=== PATIENT | male | born 1990 | race Caucasian/White ===

== ENCOUNTER 2017-01-14 11:55 | Emergency (ER) | payer OTHER ==
[~2017-01-14] VITALS: Ht 162.6 cm; Wt 89.0 kg
[~2017-01-14 11:55] MED LIST: GABA-502 PO; LEVE750T16 PO; LEVO100T6 PO; NAPR250T PO
[2017-01-14 11:57] VITALS: BP 132/80; PULSE 89; RESP 15; O2SAT 100
--- NOTE | 2017-01-14 12:27 | ED.REPORT ---
HPI-Seizure Date of Service Jan 14, 2017 ED Provider: Ulices Levy MD A 26 year old female with a history of seizures and hypothyroid presents to the ED complaining of multiple seizures that occurred last night. She reports that they were caused by reading a Facebook message from her ex- that was about their children. She reports that she could not focus on a simple video game that she regularly plays. The lights from the screen were bothering her so she turned it off. She started feeling agitated and dizzy. She was sitting down, tried to get up, and knocked over a 24 inch TV in the process. She then became dizzy and irritated again, and fell back down. She reports that she knew she was having a small seizure at that moment because it took her a while to comprehend what had just happened. She went to bed later, woke up to go to the bathroom and noticed bruises. Later, a friend told her that she had been shaking in her sleep. This morning, the patient noticed tooth impressions on her tongue. The patient had another seizure this morning and loss feeling in her legs. She told her friend not to call EMS, because the patient knew that her mom was already coming to get her to take her to the hospital. The patient takes Keppra and lamotrigine twice a day. She missed one dose two weeks ago, but is compliant otherwise. She also takes thyroid medication. She has been stable with her medication since November. Dr. Mancia is her neurologist whom she has not seen in a while. She has been seeing Dr. Adorno recently. The patient does not smoke or do illicit drugs. She does do marijuana that she buys from the store only. She reports a history of bilateral tubal ligation, so she denies being . The patient has recently gotten on disability and would like to see a social media marketing manager. Nursing Notes Stated Complaint: SEIZURES, DIZZY, VOMITING Chief Complaint: Seizure Nursing Notes Reviewed: Yes ([employer], [employer] not reconciled) Allergies: Coded Allergies: iodine (Verified Allergy, Unknown, MOTHER SAYS, 08/20/16) nickel (Verified Allergy, Unknown, 08/20/16) MOTHER SAYS phenobarbital (Verified Allergy, Unknown, 08/20/16) MOTHER SAYS Scheduled Gabapentin (Gabapentin) 300 Mg Capsule 600 MG PO DAILY Levetiracetam (Keppra) 750 Mg Tablet 2,250 MG PO BID Levothyroxine (Levothyroxine) 100 Mcg Tablet 100 MCG PO DAILY Scheduled PRN Lorazepam (Lorazepam) 1 Mg Tablet 1 MG PO BIDAC PRN PRN For Anxiety Naproxen (Naproxen) 250 Mg Tablet 250 MG PO BID PRN PRN For Pain General Time Seen by Provider: 12:24 Chief Complaint Chief Complaint: Other (Seizures) Hx Obtained From: Patient Arrived By: Walk-in Onset Occurred: Yesterday (last night) Symptom Duration: Intermittent Recent Healthcare: No recent doctor visit Similar Sx Previous: No Past Medical History Past Medical History Notes: Neurologist is Dr. Kourtney Alvarenga/Alise Past Medical History Hypothyroid currently on Levothyroxine Hx of epilepsy (on Keppra 750mg 2.5 tabs BID, lamotrigine 100mg BID as of 01/14/17) skin spots on chest Past Surgical History Reports: Cholecystectomy Reports: Tubal ligation Family History No family history of seizures Smoking History Current Every Day Smoker Social History Alcohol Use: Denies alcohol use Drug Use: THC Other Social History: Good social support, Local resident Ambulatory Status Independent Review of Systems Neurologic: Reports: Numbness (loss of feeling in legs during seizure this morning.), Seizure, Shaking Complete sys rev & neg: except as marked. Physical Exam Initial Vital Signs Vital Signs (First) Date Time Temp Pulse Resp B/P Pulse Ox O2 Delivery O2 Flow Rate FiO2 01/14/17 11:57 36.5 89 15 132/80 100 Room Air Initial VS: Reviewed General/Constitutional: Awake, Alert Patient is wide awake, is alert, is sitting on the edge of the bed and walks around the room. No sign of intoxication or withdrawal. Neck: Atraumatic, Full range of motion Respiratory / Chest: Atraumatic, Breath sounds NL, Breath sounds = bilat, No respiratory distress, No rales, No rhonchi Cardiovascular: Heart rate NL, Regular rhythm, Heart sounds NL, No gallop, No murmurs, No rubs Neurologic: Oriented X3, Speech NL She does not appear post-ictal. Head / Eyes: Atraumatic, Normocephalic, PERRL, EOMI ENT: Atraumatic, Mucous membranes moist No injury to tongue. Abdomen: Atraumatic, No guarding, No rebound Upper Extremity / MS: Atraumatic, Full range of motion Lower Extremity / Pelvis / MS: Atraumatic, Full range of motion Skin: Warm, Dry Back: Atraumatic, Full range of motion Wrist / Hand: Atraumatic, Full range of motion Ankle / Foot: Atraumatic, Full range of motion Interpretation & Diagnostics Lab Results Interpretation Result Diagram: 01/14/17 1225 01/14/17 1225 Test 01/14/17 12:25 White Blood Count 7.6th/mm3 (3.8-10.1) Red Blood Count 4.88mil/mm3 (3.90-5.20) Hemoglobin 14.2g/dL (12.0-15.6) Hematocrit 42.6% (35.0-46.0) Mean Corpuscular Volume 87.3fL (81-100) Mean Corpuscular Hemoglobin 29.1pg (27.0-35.0) Mean Corpuscular Hemoglobin Concent 33.3% (32.0-37.0) Red Cell Distribution Width 13.2% (12.3-15.4) Platelet Count 310bil/L (150-400) Neutrophils (%) (Auto) 61.2% (40-74) Lymphocytes (%) (Auto) 26.3% (14-46) Monocytes (%) (Auto) 8.5% (4-12) Eosinophils (%) (Auto) 2.8% (0-5) Basophils (%) (Auto) 1.1% (0-3) Sodium Level 136mEq/L (134-144) Potassium Level 4.2mEq/L (3.5-5.2) Chloride Level 102mEq/L (97-108) Carbon Dioxide Level 18mmol/L (18-29) Blood Urea Nitrogen 9mg/dL (6-20) Creatinine 0.72mg/dL (0.57-1.00) Estimat Glomerular Filtration Rate 138mL/min (>59) Glucose Level 102mg/dL (60-99) Calcium Level 8.9mg/dL (8.5-10.1) Total Bilirubin 0.2mg/dL (0.0-1.2) Aspartate Amino Transf (AST/SGOT) 28U/L (0-50) Alanine Aminotransferase (ALT/SGPT) 20U/L (0-32) Alkaline Phosphatase 95U/L (25-150) Total Protein 7.5g/dL (6.4-8.4) Albumin 4.4g/dL (3.4-5.0) Human Chorionic Gonadotropin, Qual <0.500 (Negative) Lab Results Interpretation: CBC normal + CMP normal negative Re-Eval/Medical Decision Med Decision/Clinical Course This is a 26-year-old female with a chronic seizure disorder on Keppra plus lamotrigine who presents complaining of some increased seizure activity. Patient reports she has been compliant with her medications and doing okay- reports she developed increase in symptoms and events following being notified that her partner has told her that he will be taking the children and moving out of state and she will not have access to them. It is not clear that she had any tonic clonic seizures, she just notes she knocked some things over and has some memory lapses, but it sounds at friend that she was staying with thought she might of had a seizure, which when she said she should come get checked out. On exam she clinically appears well. She has no findings of injury, tongue injury. Physical exam is otherwise normal. Baseline labs are negative. There is no indication of sending Keppra or lamotrigineevels in this setting. Patient did ask for and was seen by the social media marketing manager for resources. She did receive a dose of lorazepam in the department. I think in the setting of acute stressful event, with worsening or concerning symptoms, it is reasonable to discharge with a few lorazepam. The patient is discharged in good condition. She had no seizure events during a multiple hour ED stay Source of Hx: Old records Differential Diagnosis: Positive: Seizure disorder, Negative: Anticonvulsant withdrawal, Closed head injury, Eclampsia, Hyponatremia, Intracranial bleed, Intracranial mass/lesion, Meningitis, Migraine headache atypic Counseled Regarding: Diagnosis, Lab results, Need for follow-up, When/why to return to ED Discharge & Departure Impression: Primary Impression: Seizure Disposition: Home Discharge Condition All VS Reviewed: Yes Condition: Improved Additional Instructions: 1. Continue your Keppra and lamotrigine 2. You can also take lorazepam 1mg twice a day for the next 2-3 days - helps reduce seizures as well as some component of the stress you are experiencing. NOTE: Causes some drowsiness. 3. Follow up with the resources as provided by the social media marketing manager 4. Return if new or worsening symptoms Referrals: Mayra Ng (PCP) [facility] Attestation Portions of this note were transcribed by Maged Castrejon. I, Dr. Levy personally performed the history, physical exam and medical decision-making; I reviewed and confirmed the accuracy of the information in the transcribed note. Signed by: Devang Sage, 01/14/2017 1623. copies to: Mayra Ng Matthew F MD Jan 14, 2017 12:27 Maged Castrejon Jan 14, 2017 12:37
[2017-01-14 12:48] LABS: BASOPHILS % (AUTO) 1.1 % (0-3); EOSINOPHILS % (AUTO) 2.8 % (0-5); MONOCYTES % (AUTO) 8.5 % (4-12); Mean Corpuscular Hemoglobin 29.1 pg (27.0-35.0); Mean Corpuscular Volume 87.3 fL (81-100); NEUTROPHILS % (AUTO) 61.2 % (40-74); Platelet Count 310 bil/L (150-400)
[2017-01-14 14:01] VITALS: BP 124/74; PULSE 73; RESP 20; O2SAT 100
[2017-01-14] MEDS ORDERED: LORA1TAB PO (14:51)
[2017-01-14 15:03] VITALS: BP 127/71; PULSE 76; RESP 20; O2SAT 100
== END 2017-01-14 15:04 | disposition home or self-care (01) ==
LOC: EDSEX → SED 11:55
DX: R56.9 Unspecified convulsions (principal); E03.9 Hypothyroidism, unspecified; F17.200 Nicotine dependence, unspecified, uncomplicated
CPT/HCPCS: 36415; 80053; 84703; 85025; 90791; 96374; 99284; J2060

== ENCOUNTER 2017-01-30 11:20 | Emergency (ER) | payer OTHER ==
[~2017-01-30] VITALS: Ht 162.6 cm; Wt 98.6 kg
[~2017-01-30 11:20] MED LIST changes: +LORA1TAB PO
[2017-01-30 11:23] VITALS: BP 115/95; PULSE 94; RESP 18; O2SAT 95
[2017-01-30] MEDS ORDERED: 0.9% Sodium Chloride 1,000 ML IV ONE (11:52)
[2017-01-30] MEDS ORDERED: LORazepam 1 mg Tablet PO ONE (11:55)
[2017-01-30] MEDS ORDERED: Ondansetron 2 mg/mL 2 mL Inj IVPUSH ONE (11:55)
--- NOTE | 2017-01-30 12:20 | ED.REPORT ---
HPI-General Illness Date of Service Jan 30, 2017 ED Provider: Damián Gastelum PA-C Val is a 26-year-old female with a history of seizure disorder who presents with a complaint of increased seizure activity as well as headache and back pain. Patient reports that while she was sleeping on the living room floor last night her roommate noted her to be moving around and that she struck her head against a chair. She also states that a service dog trained in seizure detection (not hers) who was living with the roommate responded to this. Roommate reports that the episode lasted approximately 3 minutes. States that she noticed the bite medina in her tongue, which have resolved. Denies incontinence. She reports that she woke up this morning with a headache which radiates 8 out of 10 over her right ear, right sided back pain. She reports a history of migraines, but feels this is different than her usual headache. She states that she has felt "spaced out" and "cannot answer simple questions". She reports 2 episodes where she felt weak and nearly collapsed. She states her feet become tingly when she walks around. She was seen in this department for similar complaints approximately 3 weeks ago. Denies unilateral weakness, vision changes. She reports being compliant with her Keppra and Topamax. Denies pain in lower extremity. Denies fever, DM, HIV, organ transplant, immunosuppression, recent surgery, recent infection, history of back surgery, surgical implants and IV drug use. Denies bowel/bladder dysfunction and saddle anesthesia. Nursing Notes Stated Complaint: SEIZURE DISORDER Chief Complaint: Neuro Symptoms/ Deficits Nursing Notes Reviewed: Yes Allergies: Coded Allergies: iodine (Verified Allergy, Unknown, MOTHER SAYS, 08/20/16) nickel (Verified Allergy, Unknown, 08/20/16) MOTHER SAYS phenobarbital (Verified Allergy, Unknown, 08/20/16) MOTHER SAYS Scheduled Gabapentin (Gabapentin) 300 Mg Capsule 600 MG PO DAILY Levetiracetam (Keppra) 750 Mg Tablet 2,250 MG PO BID Levothyroxine (Levothyroxine) 100 Mcg Tablet 100 MCG PO DAILY Scheduled PRN Lorazepam (Lorazepam) 1 Mg Tablet 1 MG PO BIDAC PRN PRN For Anxiety Naproxen (Naproxen) 250 Mg Tablet 250 MG PO BID PRN PRN For Pain General Time Seen by MD: 11:32 Chief Complaint Seizure Past Medical History Past Medical History Notes: Neurologist is Dr. Kourtney Alvarenga/Alise Past Medical History Hypothyroid currently on Levothyroxine Hx of epilepsy (on Keppra 750mg 2.5 tabs BID, lamotrigine 100mg BID as of 01/14/17) skin spots on chest Past Surgical History Reports: Cholecystectomy Reports: Tubal ligation Family History No family history of seizures Smoking History Current Every Day Smoker Social History Alcohol Use: Denies alcohol use Drug Use: THC Other Social History: Good social support, Local resident Ambulatory Status Independent Review of Systems General: Denies fever, chills, malaise. HEENT: Admits headache. Denies congestion, sore throat. Respiratory: Denies dyspnea, cough, shortness of breath, wheezing. Cardiovascular: Denies chest pain, palpitations. Otherwise as noted in HPI. Physical Exam General: Well appearing, well developed, well nourished, no acute distress. Head: Mild tenderness to palpation over right ear. No lesion noted. Atraumatic , normocephalic. No mastoid tenderness. Eyes: No scleral icterus or injection. No discharge. PERRL. Vision grossly intact. Ears: Pinna and tragus nontender with manipulation. External auditory canal patent, atraumatic and without discharge. Tympanic membrane to, shiny and translucent without fluid, bulging, retraction or perforation. Hearing grossly intact. Nose: Symmetrical, nares patent without discharge. No frontal or maxillary sinus tenderness. Mouth/pharynx: Negative tongue or dental trauma. Normal dentition, mucus membranes moist. Tonsils 2+ and symmetrical, uvula midline. Pharynx noninjected , no cobblestoning or discharge. Voice clear. Neck: No tenderness or lymphadenopathy. Trachea midline. Respiratory: Regular rate and rhythm. Breath sounds present, clear to auscultation and equal bilaterally. No respiratory distress. No increased work of breathing, speaks in complete sentences. Cardiovascular: Regular rate and rhythm, without murmur, gallop or rub. No pedal edema. Gastrointestinal: Abdomen flat and non-tender without guarding or rebound. Bowel sounds normoactive. Skin: Warm and dry. Back: Normal to inspection mild tenderness over right paraspinal region from shoulder to hip. Negative midline spinous process tenderness. Excellent range of motion. Neurological: Normal gait, heel walk, toe walk, heel-to-toe walk, Romberg. Negative pronator drift. Negative leg lift. Normal finger-nose, rapid hand, heel to saldaña. Cranial nerves: Vision grossly intact, PERRL, EOMI. Facial motion symmetrical, sensation to light touch over forehead, maxilla and mandible present and equal B /L. Voice clear and fluent, no drooling/pooling of saliva, uvula rises midline. Psychological: Alert and oriented x3. Speech appropriate, linear and logical. Behavior appropriate. Vital Signs Vital Signs Date Time Temp Pulse Resp B/P Pulse Ox O2 Delivery O2 Flow Rate FiO2 01/30/17 11:23 36.4 94 18 115/95 95 Initial VS: Reviewed, Vital signs normal Interpretation & Diagnostics Lab Results Interpretation Result Diagram: 01/30/17 1258 01/30/17 1258 Test 01/30/17 12:58 White Blood Count 7.5th/mm3 (3.8-10.1) Red Blood Count 4.68mil/mm3 (4.40-5.80) Hemoglobin 13.4g/dL (13.8-17.2) Hematocrit 40.6% (41.0-50.0) Mean Corpuscular Volume 86.8fL (81-100) Mean Corpuscular Hemoglobin 28.6pg (27.0-35.0) Mean Corpuscular Hemoglobin Concent 33.0% (32.0-37.0) Red Cell Distribution Width 13.5% (12.3-15.4) Platelet Count 264bil/L (150-400) Neutrophils (%) (Auto) 62.1% (40-74) Lymphocytes (%) (Auto) 23.1% (14-46) Monocytes (%) (Auto) 11.1% (4-12) Eosinophils (%) (Auto) 2.7% (0-5) Basophils (%) (Auto) 0.7% (0-3) Sodium Level 138mEq/L (134-144) Potassium Level 3.7mEq/L (3.5-5.2) Chloride Level 104mEq/L (97-108) Carbon Dioxide Level 19mmol/L (18-29) Blood Urea Nitrogen 7mg/dL (6-20) Creatinine 0.66mg/dL (0.76-1.27) Estimat Glomerular Filtration Rate 153mL/min (>59) Glucose Level 109mg/dL (60-99) Calcium Level 9.1mg/dL (8.5-10.1) Re-Eval/Medical Decision Med Decision/Clinical Course 26-year-old female with a history of multiple emergency department visits presents with a chief complaint of increased seizure activity as well as headache and back pain. Reports a seizure while she slept last night which was witnessed by her roommate. Remain states that she hit her head against a chair. This morning she awoke with a right sided headache which is unusual for her as well as right-sided back pain. Denies neurological deficits, but feels weak and "out of it." Physical examination is benign with a normal neurological examination. Headache without red flag symptoms for infection, subarachnoid bleeding, mass. Pain is reproduced with palpation. This headache is most likely secondary to striking her head while having a seizure last night. Back pain is without red flag symptoms for acute disc herniation, cauda equina, infection, hematoma, trauma, pyelonephritis, nephrolithiasis, AAA, cancer. I believe this is musculoskeletal back pain likely secondary to her seizure. I discussed this case with Dr. Farley. We agree that it seems unlikely that her increased seizure activity is secondary to intracranial pathology, drug use, medication levels. Treated for headache with Tylenol, Benadryl, Ativan, NS. Sent blood work. Shortly after receiving treatment and a small amount of normal saline, the patient reports feeling significant improvement and wishes to be discharged. She agrees to contact her neurologist on Wednesday to arrange follow-up. I believe she is stable and safe to be discharged home. Provided emergency return precautions. Patient understands and agrees with the plan. Time of Eval: 13:16 Patient Status: Condition improved Re-Evaluation/Progress Note: Patient reports her headache pain is down to 4/10. She feels much improved after treatment with a small amount of normal saline, Tylenol, lorazepam, Benadryl. She states she feels better and wishes to be discharged. She has discussed follow-up care with ALIREZA Guerra. She will contact her neurologist on Wednesday to arrange an appointment. She reports she is arranging a ride home. Discharge & Departure Primary Impression: Headache Headache type: unspecified Headache chronicity pattern: unspecified pattern Intractability: not intractable Qualified Code: R51 - Headache Additional Impression: Back pain Back pain location: back pain in other location Chronicity: acute Qualified Code: M54.9 - Dorsalgia, unspecified Disposition: Home Discharge Condition All VS Reviewed: Yes Condition: Stable Additional Instructions: Evaluation for seizure activity was headache and back pain in the emergency department. History and physical are reassuring that neither your headache or back pain represents an emergent condition. It is also reassuring that your increased seizure activity is unlikely to be caused by an emergent condition. Fortunately, you have not had a seizure while in the emergency department. At this point I believe you are stable and safe to be discharged to home as you request. Please contact your neurologist on Wednesday to arrange follow-up as soon as possible to address your increased seizure activity. Return to the emergency department for any new or worsening symptoms including loss of bowel/bladder control, numbness between your legs, vision changes, new neurological symptoms or a change in your headache. Referrals: Kourtney Alvarenga MD EDSupervising Provider for APC: Pooja Farley MD copies to: Kourtney Alvarenga MD; Mayra Ng Seth PA-C Jan 30, 2017 12:20
[2017-01-30 13:12] LABS: BASOPHILS % (AUTO) 0.7 % (0-3); EOSINOPHILS % (AUTO) 2.7 % (0-5); MONOCYTES % (AUTO) 11.1 % (4-12); Mean Corpuscular Hemoglobin 28.6 pg (27.0-35.0); Mean Corpuscular Volume 86.8 fL (81-100); NEUTROPHILS % (AUTO) 62.1 % (40-74); Platelet Count 264 bil/L (150-400)
[2017-01-30 13:47] VITALS: BP 113/77; PULSE 3; RESP 16; O2SAT 100
== END 2017-01-30 13:48 | disposition home or self-care (01) ==
LOC: EDSEX → SED 11:20
DX: R51 Headache (principal); M54.9 Dorsalgia, unspecified; F17.200 Nicotine dependence, unspecified, uncomplicated; Z88.8 Allergy status to other drugs, medicaments and biological substances
CPT/HCPCS: 36415; 80048; 85025; 90791; 96361; 96374; 96375; 99284; J1200; J2405; J7030

== ENCOUNTER 2017-02-03 15:25 | Emergency (ER) | payer OTHER ==
[2017-02-03 15:29] VITALS: BP 117/72; PULSE 82; RESP 16; O2SAT 99
[2017-02-03] MEDS ORDERED: TOPI50TA32 PO ×2 (16:25)
--- NOTE | 2017-02-03 16:38 | ED.REPORT ---
HPI-Headache Date of Service Feb 03, 2017 ED Provider: Tariq Palmer DO 26 year old female with a history of epilepsy who presents to the ER after she tripped and fell and hit her R occipital area on a coffee table today. Pt reports LOC of unknown duration which was unwitnessed. She also reports 1 episode of vomiting. Pt now feels normal aside from a headache. Nursing Notes Stated Complaint: FELL AND HIT HEAD Chief Complaint: Head, Face, Neck Trauma Nursing Notes Reviewed: Yes Allergies: Coded Allergies: iodine (Verified Allergy, Unknown, MOTHER SAYS, 02/03/17) nickel (Verified Allergy, Unknown, 02/03/17) MOTHER SAYS phenobarbital (Verified Allergy, Unknown, 02/03/17) MOTHER SAYS Scheduled Levetiracetam (Keppra) 750 Mg Tablet 2,500 MG PO BID Levothyroxine (Levothyroxine) 100 Mcg Tablet 100 MCG PO DAILY Topiramate (Topamax) 50 Mg Tablet 50 MG PO QAM Topiramate (Topamax) 50 Mg Tablet 100 MG PO QPM General Time Seen by MD: 16:04 Chief Complaint Headache, Other (LOC) Hx Obtained From: Patient, Other family... Arrived By: Walk-in Sudden in Onset?: Yes Onset Occurred: 1 - 4 hours ago Symptom Duration: Since onset Location: : Parietal right Quality: Painful Severity: Current: Moderate Associated with: Reports: Nausea, Vomiting Past Medical History Past Medical History Notes: Neurologist is Dr. Kourtney Alvarenga/Alise Past Medical History Hypothyroid currently on Levothyroxine Hx of epilepsy (on Keppra 750mg 2.5 tabs BID, lamotrigine 100mg BID as of 01/14/17) skin spots on chest Past Surgical History Reports: Cholecystectomy Reports: Tubal ligation Family History No family history of seizures Smoking History Former Smoker Social History Alcohol Use: Denies alcohol use Drug Use: THC Other Social History: Good social support, Local resident Ambulatory Status Independent Review of Systems Basic Review of Systems Respiratory: No shortness of breath, No cough, No wheeze Cardiovascular: No chest pain, No dyspnea on exertion, No orthopnea, No parox noct dyspnea, No palpitations GI: Reports: Vomiting Neurologic: Reports: Change LOC, Headache Complete sys rev & neg: except as marked. Physical Exam Initial Vital Signs Vital Signs (First) Date Time Temp Pulse Resp B/P Pulse Ox O2 Delivery O2 Flow Rate FiO2 02/03/17 15:29 36.9 82 16 117/72 99 Room Air Initial VS: Reviewed ENT: Mucous membranes moist, Conjunctiva normal, No scleral icterus Respiratory: Breath sounds normal, Clear to auscultation, No respiratory distress Cardiovascular: Regular rate & rhythm, Heart sounds normal, Intact distal pulses Abdomen / GI: Soft, Non-tender, No guarding, No rebound, No distention Extremities: Vascular intact, Neuro intact, No swelling, No tenderness Skin: Warm, Dry, No cyanosis Psychiatric: Mood/affect normal, Behavior normal, Normal thought content General/Constitutional: Awake, Alert, Cooperative Head / Eyes: Normocephalic, PERRL, EOMI Mild TTP of R parietal area Neck: Supple, Full range of motion Neurologic: Oriented X3, Speech NL, No motor deficits, No sensory deficits Interpretation & Diagnostics CT Head Interpretation IMPRESSION: 1. No acute intracranial findings. 2. Unchanged right parietal lobe encephalomalacia. Dictated by: Sofia De La Cruz M.D. on 02/03/2017 at 16:42 Study: Head CT no contrast Interpretation / Wet Read by: Interpret - Radiologist Re-Eval/Medical Decision Re-Evaluation/Progress : Time of Eval: 17:00 Re-Evaluation/Progress Note: Pt resting comfortably in room. Updated pt of imaging results. Discussed plan for discharge and follow up. All questions addressed. Counseled Regarding: Diagnosis, Need for follow-up, When/why to return to ED Discharge & Departure Impression: Primary Impression: Concussion Encounter type: initial encounter Loss of consciousness presence/duration: with LOC of unspecified duration Qualified Code: S06.0X9A - Concussion with loss of consciousness of unspecified duration, initial encounter Disposition: Home Discharge Condition All VS Reviewed: Yes Condition: Improved Patient Instructions: Concussion (ED) Overall no traumatic injury can be identified within your brain. Follow-up with your primary care doctor and neurologist as planned. Return to the ER as needed if worse. Referrals: Mayra Ng PAC (PCP) Scribe Attestation Portions of this note were transcribed by Nell Lancaster. I, (Dr. Tariq Palmer ) personally performed the history, physical exam and medical decision-making; I reviewed and confirmed the accuracy of the information in the transcribed note. Signed by: Nell Lancaster. Devang, 02/03/2017, 1733 copies to: Mayra Ng Timothy S DO Feb 03, 2017 16:38 Nell Lancaster Feb 03, 2017 16:46
--- NOTE | 2017-02-03 16:45 | DRSVH ---
PROCEDURE: CT BRAIN WITHOUT CONTRAST ([id number]) INDICATIONS: head injury, vomiting, LOC TECHNIQUE: Noncontrast 4.5 mm thick angled axial sections acquired from the foramen magnum to the vertex, with c oronal reformats. COMPARISON: [facility], CT, CT BRAIN WO CON, 10/27/2016, 16:04. FINDINGS: Image quality: Excellent. CSF spaces: Basal cisterns are patent. No extra-axial fluid collections. Ventricles are normal in size and shape. Brain: No midline shift. No intracranial masses or hemorrhage. Encephalomalacia is redemonstrated a t the right vertex unchanged from the study dated 10/27/16. Fitzgerald-white matter interface is normal. Skull and face: Calvarium and visualized facial bones are intact, without suspicious lesions. Sinuses: Visualized sinuses and mastoids are clear. IMPRESSION: 1. No acute intracranial findings. 2. Unchanged right parietal lobe encephalomalacia. Dictated by: Sofia De La Cruz M.D. on 02/03/2017 at 16:42 Approved by: Sofia De La Cruz M.D. on 02/03/2017 at 16:44
[2017-02-03 16:57] VITALS: BP 128/93; PULSE 80; RESP 14; O2SAT 100
== END 2017-02-03 16:54 | disposition home or self-care (01) ==
LOC: EDSEX 15:25 → SED 15:25
DX: S06.0X9A Concussion with loss of consciousness of unspecified duration, initial encounter (principal); W01.190A Fall on same level from slipping, tripping and stumbling with subsequent striking against furniture, initial encounter; Y93.89 Activity, other specified; Y92.009 Unspecified place in unspecified non-institutional (private) residence as the place of occurrence of the external cause; Y99.8 Other external cause status; E03.9 Hypothyroidism, unspecified; Z87.891 Personal history of nicotine dependence; Z88.8 Allergy status to other drugs, medicaments and biological substances

== ENCOUNTER 2017-02-15 13:49 | Emergency (ER) | payer OTHER ==
[~2017-02-15] VITALS: Ht 162.6 cm; Wt 95.5 kg
[~2017-02-15 13:49] MED LIST changes: -GABA-502 PO; -LORA1TAB PO; -NAPR250T PO; +TOPI50TA32 PO
[2017-02-15 13:58] VITALS: BP 112/77; PULSE 96; RESP 18; O2SAT 97
[2017-02-15 16:15] LABS: BASOPHILS % (AUTO) 1.4 % (0-3); EOSINOPHILS % (AUTO) 3.4 % (0-5); MONOCYTES % (AUTO) 10.3 % (4-12); Mean Corpuscular Hemoglobin 28.9 pg (27.0-35.0); NEUTROPHILS % (AUTO) 52.6 % (40-74); Platelet Count 285 bil/L (150-400)
--- NOTE | 2017-02-15 16:15 | ED.REPORT ---
HPI-Seizure Date of Service Feb 15, 2017 ED Provider: Damián Gastelum PA-C Val is otherwise healthy 26-year-old female with a chief complaint of seizure. She reports having a seizure last night consisted of numbness in her hands which progressed to tremulousness. She reports that her thumbs of been twitching uncontrollably. He also complains of lightheaded dizziness, nausea and unsteady gait. She reports one episode of vomiting without blood as well as 2 episodes of diarrhea without blood and one episode of urinary incontinence. She reports a history of seizure disorder for which she takes Keppra and Topamax. She reports that her seizures are "anywhere from petit mal to grand mal". She is seen by Dr. Knight and Dr. Adorno, most recently about 3 months ago. Denies abdominal pain, urinary symptoms. Nursing Notes Stated Complaint: DIZZY/SHAKY Chief Complaint: Seizure Nursing Notes Reviewed: Yes Allergies: Coded Allergies: iodine (Verified Allergy, Unknown, MOTHER SAYS, 02/03/17) nickel (Verified Allergy, Unknown, 02/03/17) MOTHER SAYS phenobarbital (Verified Allergy, Unknown, 02/03/17) MOTHER SAYS Scheduled Levetiracetam (Keppra) 750 Mg Tablet 2,500 MG PO BID Levothyroxine (Levothyroxine) 100 Mcg Tablet 100 MCG PO DAILY Topiramate (Topamax) 50 Mg Tablet 50 MG PO QAM Topiramate (Topamax) 50 Mg Tablet 100 MG PO QPM General Time Seen by Provider: 16:01 Chief Complaint Chief Complaint: Seizure, focal Past Medical History Past Medical History Notes: Neurologist is Dr. Kourtney Alvarenga/Alise Past Medical History Hypothyroid currently on Levothyroxine Hx of epilepsy (on Keppra 750mg 2.5 tabs BID, lamotrigine 100mg BID as of 01/14/17) skin spots on chest Past Surgical History Reports: Cholecystectomy Reports: Tubal ligation Family History No family history of seizures Smoking History Former Smoker Social History Alcohol Use: Denies alcohol use Drug Use: THC Other Social History: Good social support, Local resident Ambulatory Status Independent Review of Systems Review of Systems Note: Negative unless stated otherwise in history of present illness Physical Exam General: Well appearing, well developed, obese, no acute distress. Head: Atraumatic, normocephalic. No mastoid tenderness. Eyes: No scleral icterus or injection. No discharge. PERRL. Vision grossly intact. Ears: Pinna and tragus nontender with manipulation. External auditory canal patent, atraumatic and without discharge. Tympanic membrane to, shiny and translucent without fluid, bulging, retraction or perforation. Hearing grossly intact. Nose: Symmetrical, nares patent without discharge. No frontal or maxillary sinus tenderness. Mouth/pharynx: Poor dentition with many caries along the gumline, mucus membranes moist. Tonsils 2+ and symmetrical, uvula midline. Pharynx noninjected , no cobblestoning or discharge. Voice clear. Neck: No tenderness or lymphadenopathy. Trachea midline. Respiratory: Regular rate and rhythm. No respiratory distress. No increased work of breathing, speaks in complete sentences. Skin: Warm and dry. Neurological: Normal gait, Romberg. negative pronator drift. Normal rapid hand , finger to nose. Cranial nerves: Vision grossly intact, PERRL, EOMI. Facial motion symmetrical, sensation to light touch over forehead, maxilla and mandible present and equal B /L. Voice clear and fluent, no drooling/pooling of saliva, uvula rises midline. Psychological: Alert and oriented. Speech appropriate, linear and logical. Behavior appropriate. Initial Vital Signs Vital Signs (First) Date Time Temp Pulse Resp B/P Pulse Ox O2 Delivery O2 Flow Rate FiO2 02/15/17 13:58 36.4 96 18 112/77 97 Room Air Initial VS: Vital signs normal Interpretation & Diagnostics Lab Results Interpretation Result Diagram: 02/15/17 1608 02/15/17 1608 Test 02/15/17 16:08 02/15/17 16:20 White Blood Count 6.5th/mm3 (3.8-10.1) Red Blood Count 4.70mil/mm3 (3.90-5.20) Hemoglobin 13.6g/dL (12.0-15.6) Hematocrit 40.9% (35.0-46.0) Mean Corpuscular Volume 87.0fL (81-100) Mean Corpuscular Hemoglobin 28.9pg (27.0-35.0) Mean Corpuscular Hemoglobin Concent 33.3% (32.0-37.0) Red Cell Distribution Width 13.4% (12.3-15.4) Platelet Count 285bil/L (150-400) Neutrophils (%) (Auto) 52.6% (40-74) Lymphocytes (%) (Auto) 32.3% (14-46) Monocytes (%) (Auto) 10.3% (4-12) Eosinophils (%) (Auto) 3.4% (0-5) Basophils (%) (Auto) 1.4% (0-3) Sodium Level 140mEq/L (134-144) Potassium Level 3.6mEq/L (3.5-5.2) Chloride Level 105mEq/L (97-108) Carbon Dioxide Level 19mmol/L (18-29) Blood Urea Nitrogen 8mg/dL (6-20) Creatinine 0.76mg/dL (0.57-1.00) Estimat Glomerular Filtration Rate 130mL/min (>59) Glucose Level 93mg/dL (60-99) Calcium Level 9.1mg/dL (8.5-10.1) Magnesium Level 1.7mg/dL (1.6-2.6) Total Bilirubin 0.2mg/dL (0.0-1.2) Aspartate Amino Transf (AST/SGOT) 15U/L (0-50) Alanine Aminotransferase (ALT/SGPT) 16U/L (0-32) Alkaline Phosphatase 82U/L (25-150) Total Protein 7.1g/dL (6.4-8.4) Albumin 4.1g/dL (3.4-5.0) Hold Urine Received (Received) Re-Eval/Medical Decision Med Decision/Clinical Course 18-year-old female well-known to this department with a history of seizure disorders presents with chief complaint of seizure. She reports focal seizures in her hands last night and continuing into today. As attempted to transition her history taking to physical examination, the patient took a phone call. I moved on to examine other patient's as we awaited lab results. I was told patient was displeased by this. Physical examination is benign with a normal neurological examination. No evidence of seizures. CBC, CMP are within acceptable limits, with no indication of infection or electrolyte imbalance. Tox positive only for THC. Normal brain CT 02/03/17 Keppra level was drawn, but not returned. This is apparently a continuation of her usual seizure activity, with no indication of stroke, electrolyte imbalance, neurological deficit, mass. Advised neurology follow-up, emergency return precautions. Patient verbalizes understanding of and content to the plan. Discharge & Departure Impression: Primary Impression: Seizure-like activity Disposition: Home Discharge Condition All VS Reviewed: Yes Condition: Stable Additional Instructions: Evaluation in the emergency department for seizures. History, physical, blood tests and Keppra level are all reassuring that there is not an acute or dangerous cause for your seizures. I believe stable safely discharged to home. Please follow up with your primary care physician for further assessment. Return to emergency department for new or worsening symptoms including seizures the last more than a minute or two, one-sided weakness, new or suddenly severe headache. Referrals: Mayra Ng (PCP) EDSupervising Provider for APC: Camden Sequeira MD copies to: Mayra Ng Seth PA-C Feb 15, 2017 16:15
[2017-02-15 16:36] LABS: Magnesium 1.7 mg/dL (1.6-2.6)
[2017-02-15 17:43] VITALS: RESP 16
== END 2017-02-15 17:44 | disposition home or self-care (01) ==
LOC: SED 13:49
DX: R56.9 Unspecified convulsions (principal); Z87.891 Personal history of nicotine dependence

== ENCOUNTER 2017-03-11 21:30 | Emergency (ER) | payer OTHER ==
[~2017-03-11] VITALS: Ht 162.6 cm; Wt 95.5 kg
[2017-03-11 21:39] VITALS: BP 119/78; PULSE 85; RESP 16; O2SAT 98
--- NOTE | 2017-03-11 21:39 | ED.REPORT ---
HPI-Seizure Date of Service March 11, 2017 ED Provider: Judah Colon MD 26 year old female with a history of epilepsy presents to the ER accompanied by her status post seizure just prior to arrival. reports that they were out to dinner when her "face went slack, eyes went blank, hand started twitching" and she promptly dropped her phone. Patient also endorses gradual sensation loss in her lower extremities over the past few days. Dr. Horner , Neurology, decreased her daily Keppra dose from 3/750mg bid to 2/750mg bid about two weeks ago. She reports increasingly frequent seizures that have worsened in severity since adjusting her Keppra dose, and frequent headaches upon awakening in recent weeks. Patient denies vomiting, and any other new symptoms. Nursing Notes Stated Complaint: SEIZURE Chief Complaint: Neuro Symptoms/ Deficits Nursing Notes Reviewed: Yes Allergies: Coded Allergies: iodine (Verified Allergy, Unknown, MOTHER SAYS, 03/11/17) nickel (Verified Allergy, Unknown, 03/11/17) MOTHER SAYS phenobarbital (Verified Allergy, Unknown, 03/11/17) MOTHER SAYS Scheduled Levetiracetam (Keppra) 750 Mg Tablet 1,500 MG PO BID Levothyroxine (Levothyroxine) 100 Mcg Tablet 100 MCG PO QAM Topiramate (Topamax) 50 Mg Tablet 200 MG PO BID Scheduled PRN Naproxen (Naproxen) 250 Mg Tablet 250 MG PO BID PRN PRN For Pain General Time Seen by Provider: 21:39 Chief Complaint Chief Complaint: Seizure, generalized Hx Obtained From: Patient, Spouse Arrived By: Walk-in Onset Occurred: Just prior to arrival Related History: Reports: Known seizure disorder Similar Sx Previous: Yes Past Medical History Past Medical History Notes: Neurologist is Dr. Kourtney Alvarenga/Alise Past Medical History Hypothyroid currently on Levothyroxine Hx of epilepsy (on Keppra 750mg 2.5 tabs BID, lamotrigine 100mg BID as of 01/14/17) skin spots on chest Past Surgical History Reports: Cholecystectomy Reports: Tubal ligation Family History No family history of seizures Smoking History Former Smoker Social History Alcohol Use: Denies alcohol use Drug Use: THC Other Social History: Good social support, Local resident Ambulatory Status Independent Review of Systems Respiratory: Denies: Non-productive cough, Shortness of breath Cardiovascular: Denies: Chest pain Musculoskeletal: Denies: Back pain, Extremity pain, Lumbar pain, Neck pain Neurologic: Reports: Headache, Numbness (Lower Extremities), Seizure, Shaking, Denies: Dizziness, Slurred speech, Syncope Complete sys rev & neg: except as marked. GI: Denies: Nausea, Vomiting Physical Exam Initial Vital Signs Vital Signs (First) Date Time Temp Pulse Resp B/P Pulse Ox O2 Delivery O2 Flow Rate FiO2 03/11/17 21:39 37.3 85 16 119/78 98 Room Air Initial VS: Reviewed Head / Eyes: Atraumatic, Normocephalic Abdomen / GI: Soft, Non-tender, No guarding, No rebound, No distention Extremities: Vascular intact, Neuro intact, No swelling, No tenderness Skin: Warm, Dry, No cyanosis Psychiatric: Mood/affect normal, Behavior normal, Normal thought content General/Constitutional: Awake, Alert, Well developed, Well nourished Neck: Supple, No meningismus, Full range of motion, No swelling, Non-tender Respiratory / Chest: Breath sounds NL, Breath sounds = bilat, No respiratory distress, No rales, No rhonchi, No wheezing Cardiovascular: Heart rate NL, Regular rhythm, Heart sounds NL, Peripheral circulation NL Neurologic: Oriented X3, Speech NL, No motor deficits, No sensory deficits, CN II - XII intact Cerebellar exam has a lot of segmentation. Mildly post-ictal. Interpretation & Diagnostics Lab Results Interpretation Result Diagram: 03/11/17 2210 03/11/17 2210 Test 03/11/17 22:10 03/11/17 22:47 White Blood Count 7.5th/mm3 (3.8-10.1) Red Blood Count 4.93mil/mm3 (3.90-5.20) Hemoglobin 14.2g/dL (12.0-15.6) Hematocrit 41.9% (35.0-46.0) Mean Corpuscular Volume 85.0fL (81-100) Mean Corpuscular Hemoglobin 28.8pg (27.0-35.0) Mean Corpuscular Hemoglobin Concent 33.9% (32.0-37.0) Red Cell Distribution Width 13.1% (12.3-15.4) Platelet Count 304bil/L (150-400) Neutrophils (%) (Auto) 68.4% (40-74) Lymphocytes (%) (Auto) 21.3% (14-46) Monocytes (%) (Auto) 7.9% (4-12) Eosinophils (%) (Auto) 1.3% (0-5) Basophils (%) (Auto) 0.8% (0-3) Band Neutrophils % 0% (1-5) Sodium Level 140mEq/L (134-144) Potassium Level 3.5mEq/L (3.5-5.2) Chloride Level 105mEq/L (97-108) Carbon Dioxide Level 19mmol/L (18-29) Blood Urea Nitrogen 8mg/dL (6-20) Creatinine 0.62mg/dL (0.57-1.00) Estimat Glomerular Filtration Rate 164mL/min (>59) Glucose Level 131mg/dL (60-99) Calcium Level 9.3mg/dL (8.5-10.1) Total Bilirubin 0.2mg/dL (0.0-1.2) Aspartate Amino Transf (AST/SGOT) 17U/L (0-50) Alanine Aminotransferase (ALT/SGPT) 19U/L (0-32) Alkaline Phosphatase 97U/L (25-150) Total Protein 7.6g/dL (6.4-8.4) Albumin 4.1g/dL (3.4-5.0) Urine Color Yellow (YELLOW) Urine Appearance Cloudy (CLEAR,HAZY) Urine pH 7.5 (5.0-8.0) Urine Specific [place] 1.015 (1.003-1.035) Urine Protein Negativemg/dL (NEG,TRACE) Urine Glucose (UA) Negativemg/dL (NEGATIVE) Urine Ketones Negativemg/dL (NEGATIVE) Urine Occult Blood Negative (NEGATIVE) Urine Nitrite Negative (NEGATIVE) Urine Bilirubin Negative (NEGATIVE) Urine Urobilinogen Normalmg/dL (NORMAL) Urine Leukocyte Esterase Trace (NEGATIVE) Urine RBC 0-2/hpf (0-2) Urine WBC 0-5/hpf (0-5) Urine Epithelial Cells Few/hpf (NONE-MOD) Urine Crystals Amorphous phosphates Urine Bacteria Few/hpf (NONE-FEW) Urine Hyaline Casts None/lpf (NONE) Urine Granular Casts None seen (NONE SEEN) Urine Waxy Casts None seen (NONE SEEN) Urine Red Blood Cell Casts None seen (NONE SEEN) Urine White Blood Cell Casts None seen (NONE SEEN) Urine Mucus None seen (None Seen) Urine Trichomonas None seen (NONE SEEN) Urine Yeast None (NONE SEEN) Urinalysis Comment None Re-Eval/Medical Decision Med Decision/Clinical Course 26-year-old with history of childhood epilepsy and epileptic-like activity in recent years, evaluated both at [facility] and also after review. Continuous monitoring has not revealed verifiable seizure activity with these episodes causing her to present for seizures. 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 The episodes tonight presents in the setting of manipulations of her seizure medicines. Levels were drawn about topiramate and Keppra. They are pending for tomorrow. Her Keppra was increased again to the prior dose of 3 x 750 mg tablets twice a day or topiramate continued unchanged. Family remains concerned that these escalating episodes will result in respiratory compromise. No particular evidence of that observed here. Discussed the situation with coverage for her usual neurologic caregiver. She has been accepted for further evaluation at [facility], transported via ALS. Source of Hx: Old records Re-Evaluation/Progress #1: Time of Eval: 23:34 Re-Evaluation/Progress Note: Patient is now accompnanied by her mother who is at bedside. Verified patient's neurologist with the mother. Re-Evaluation/Progress #2: Time of Eval: 23:52 Re-Evaluation/Progress Note: Discussed plan to discharge after observation. Patient is amenable to the plan. Return precautions given. All other questions addressed. Re-Evaluation/Progress #3: Time of Eval: 01:19 Re-Evaluation/Progress Note: Bilateral leg and body twitching captured on video by boyfriend. No apparent loss of consciousness. Re-Evaluation/Progress #4: Time of Eval: 02:51 Re-Evaluation/Progress Note: Discussed need for transfer. Patient is amenable to the plan. All other questions addressed. Consultation #1: Consulted With: Neurology () Call Returned at: 23:27 Note: Neurology at is not able to contact Dr. Horner. Consultation #2: Call Returned at: 23:36 Note: Discussed patient case with the [facility]. Dr. Lunsford will call back. Consultation #3: Call Returned at: 23:44 Note: Discussed patient case with Dr. Lunsford, Neurology at [facility]. Consultation #4: Consulted With: Neurology ([facility]) Call Returned at: 02:03 Note: Discussed patient case with Neurology at [facility]. No beds available. Consultation #5: Call Returned at: 02:10 Note: Spoke with Eda at the [facility]/ transfer center. Consultation #6: Consulted With: Neurology Call Returned at: 02:44 Note: Neurology at [facility] accepts transfer. Counseled Regarding: Diagnosis, Lab results, Need for transfer Discharge & Departure Impression: Primary Impression: Seizure-like activity Disposition: Transfer, Acute Care Facility Receiving Hospital: [facility] Transfer Accepted: Yes Transfer Accepted at: 02:51 Transfer Reason: Higher level of care Spoke with: Specialty physician (Neurology) Patient Status: Stable Patient Informed: Yes Discharge Condition All VS Reviewed: Yes Condition: Stable Referrals: Mayra Ng PAC (PCP) Praful Mancia MD Attestation Portions of this note were transcribed by Dillon Duarte. I, Dr. Colon, personally performed the history, physical exam and medical decision-making; I reviewed and confirmed the accuracy of the information in the transcribed note. Signed by: Devang Johnson, 03/11/2017 at 02:52 copies to: Mayra Ng PAC; Praful Mancia MD, Christopher W MD March 11, 2017 21:39 DILLON DUARTE March 11, 2017 21:47
[2017-03-11 22:30] LABS: BASOPHILS % (AUTO) 0.8 % (0-3); EOSINOPHILS % (AUTO) 1.3 % (0-5); MONOCYTES % (AUTO) 7.9 % (4-12); Mean Corpuscular Hemoglobin 28.8 pg (27.0-35.0); NEUTROPHILS % (AUTO) 68.4 % (40-74); Platelet Count 304 bil/L (150-400)
[2017-03-11 22:40] VITALS: BP 140/75; PULSE 76; RESP 26; O2SAT 99
[2017-03-11 22:54] LABS: APPEARANCE,URINE CLOUDY (CLEAR,HAZY); COLOR,URINE YELLOW (YELLOW); OCCULT BLOOD,URINE NEGATIVE (NEGATIVE); PH,URINE 7.5 (5.0-8.0); UROBILINOGEN,URINE NORMAL (NORMAL)
[2017-03-11] MEDS ORDERED: NAPR250T PO (23:16)
[2017-03-11 23:39] VITALS: BP 136/73; PULSE 87; RESP 20; O2SAT 98
[2017-03-11] MEDS ORDERED: levETIRAcetam 500 mg Tablet PO ONE (23:50)
[2017-03-12 00:07] VITALS: BP 129/77; PULSE 79; RESP 17; O2SAT 98
[2017-03-12 02:17] VITALS: BP 100/57; PULSE 68; RESP 20; O2SAT 98
[2017-03-12 03:33] VITALS: BP 110/64; PULSE 78; RESP 16; O2SAT 98
[2017-03-15 13:12] LABS: Levetiracetam (Keppra) 46.8 ug/mL (10.0-40.0)
== END 2017-03-12 03:34 | disposition other institution (70) ==
LOC: SED 21:30
DX: R56.9 Unspecified convulsions (principal); E03.9 Hypothyroidism, unspecified; F12.10 Cannabis abuse, uncomplicated; Z87.891 Personal history of nicotine dependence; Z88.5 Allergy status to narcotic agent; Z88.8 Allergy status to other drugs, medicaments and biological substances